=== PATIENT | female | born 1985 | race African-American/Black ===

== ENCOUNTER 2016-06-13 10:54 | Emergency (ER) | payer MEDICAID ==
[2016-06-13 11:00] VITALS: TEMP 98.1
[2016-06-13] MEDS ORDERED: ONDANSETRON 4 MG/2 ML VIAL IVP ONE ×2 (11:16→13:00)
[2016-06-13] MEDS ORDERED: NS 1,000 ML IV ONE (11:16)
--- NOTE | 2016-06-13 11:25 | EDPHY ---
H & P Stated Complaint: menstral cramps HPI/ROS: CHIEF COMPLAINT: Menstrual cramps. HISTORY OF PRESENT ILLNESS: The patient is a 30-year-old female who presents with menstrual cramps that began yesterday when her period began. She is usually able to treat these with Tylenol and took Tylenol this morning, but she developed vomiting soon after. She denies diarrhea, fever, recent sickness, or other complaints. She has been seen with similar symptoms in the past and has been treated with anti-inflammatory medications and opiate medication. She took control pills for 2 years, during which time she did not suffer from severe menstrual cramps. However, she discontinued these few months ago. REVIEW OF SYSTEMS: A ten point review of systems was performed and is negative with the exception of the items mentioned in the HPI. Source: Patient Exam Limitations: No limitations - Personal History LMP (Females 10-55): Now Current Tetanus/Diphtheria Vaccine: Yes Current Tetanus Diphtheria and Acellular Pertussis (TDAP): Yes Tetanus Vaccine Date: < 10 YEARS - Medical/Surgical History Hx Asthma: No Hx Chronic Respiratory Disease: No Hx Diabetes: No Hx Cardiac Disease: No Hx Renal Disease: No Hx Cirrhosis: No Hx Alcoholism: No Hx HIV/AIDS: No Hx Splenectomy or Spleen Trauma: No Other PMH: breast biopsy - Social History Smoking Status: Current every day smoker Additional Social History: Smoker, occasional alcohol use. - Physical Exam Exam: General Appearance: Alert, tearful. Vital signs reviewed. Heart rate 118. Eyes: Pupils equal and round, no conjunctival injection, no discharge. Anicteric. ENT, Mouth: Mucous membranes are moist, no oropharyngeal erythema or edema. Neck: No lymphadenopathy, supple. Respiratory: Lungs are clear to auscultation; no wheezes, rales, or rhonchi. Cardiovascular: Regular rate and rhythm; no murmur, rub, or gallop. Gastrointestinal: Abdomen is soft and moderately tender in both lower quadrants , no guarding, no masses or organomegaly, bowel sounds normal. Skin: Warm and dry, no rashes on exposed skin, normal color. Back: Nontender to palpation over the thoracolumbar spine. No CVAT. Extremities: No lower extremity edema, no calf tenderness or swelling. Neurological: Alert and oriented. Moving all four extremities easily and equally. Psychiatric: Tearful. position. Constitutional: Initial Vital Signs Temperature (C) 36.7 C 06/13/16 10:57 Heart Rate 118 H 06/13/16 10:57 Respiratory Rate 17 06/13/16 10:57 Blood Pressure 97/57 L 06/13/16 10:57 O2 Sat (%) 93 06/13/16 10:57 O2 Delivery Mode Room Air Allergies/Adverse Reactions: SEASONAL Allergy (Mild, Uncoded 08/16/13 11:20) RUNNY NOSE, ITCHY EYES Home Medications: Medication Instructions Recorded Bcp 01/10/13 Ondansetron HCl [Zofran] 01/10/13 Quvar 01/10/13 Hydrocodone/APAP 5/325 [[place] 1 - 2 tab PO Q6H PRN #14 tab 01/21/15 5/325] Ondansetron Odt [Zofran Odt 4 mg 4 mg PO Q4 PRN #6 tab 01/21/15 (RX)] Medical Decision Making ED Course/Re-evaluation: 30-year-old female presents with menstrual cramps since yesterday. She usually gets abdominal cramping with her period but this is worse and she also vomited this morning. She has no urinary symptoms, diarrhea, fever, or other complaints. An IV was established. 4mg IV Zofran and 15 mg IV Toradol administered for nausea and pain. 1L IV saline administered for hydration. Her pain persisted and she received Dilaudid 0.5 mg IV. 1325: Reassessed patient. She is feeling much better, feels well enough to return home. We discussed follow-up with of recruitment specialist and she will make arrangements for this through [facility] where she receives her primary care. I do not suspect ovarian torsion, ovarian cyst, ectopic , SBO, urinary tract infection, pyelonephritis, or appendicitis. This presentation is consistent with prior emergency department visits. She reports that today's pain is entirely consistent with her previous episodes of severe dysmenorrhea. - Data Points Medications Given: Discontinued Medications Hydromorphone HCl (Dilaudid) 0.5 mg IVP EDNOW ONE Stop: 06/13/16 12:06 Last Admin: 06/13/16 12:14 Dose: 0.5 mg Sodium Chloride (Ns) 1,000 mls @ 0 mls/hr IV EDNOW ONE PRN Reason: Wide Open Stop: 06/13/16 11:17 Last Admin: 06/13/16 11:33 Dose: 1,000 mls Ketorolac Tromethamine (Toradol) 15 mg IVP EDNOW ONE Stop: 06/13/16 11:39 Last Admin: 06/13/16 11:45 Dose: 15 mg Ondansetron HCl (Zofran) 4 mg IVP EDNOW ONE Stop: 06/13/16 11:17 Last Admin: 06/13/16 11:33 Dose: 4 mg Ondansetron HCl (Zofran) 4 mg IVP EDNOW ONE Stop: 06/13/16 13:01 Last Admin: 06/13/16 13:10 Dose: 4 mg Departure - Departure Disposition: Home, Routine, Self-Care Clinical Impression: Menstrual cramps Condition: Good Instructions: Dysmenorrhea (ED) Additional Instructions: Follow up with [facility] COORDIN[facility] for reevaluation. Consider taking control pills again. Return for any serious worsening of condition. Referrals: [facility],. [Clinic] - As per Instructions Report Scribed for: Aury Rubio Report Scribed by: Dong Conti Date of Report: 06/13/16 Time of Report: 11:35 Physician Review and Approval Statement: 06/13/16 11:24 Portions of this note were transcribed by the medical radiation tech. I, Dr. Aury Rubio, personally performed the history, physical exam, and medical decision- making; and confirmed the accuracy of the information in the transcribed note.
[2016-06-13] MEDS ORDERED: KETOROLAC 30 MG/1 ML SDV IVP ONE (11:38)
[2016-06-13] MEDS ORDERED: KETOROLAC 15 MG/1 ML SDV ONE (11:43)
[2016-06-13] MEDS ORDERED: HYDROmorphONE/DILAUDID 1 MG/ML SYR IVP ONE (12:05)
[2016-06-13] MEDS ORDERED: HYDROmorphONE/DILAUDID 1 MG/ML SYR ONE (12:05)
[2016-06-13] MEDS ORDERED: ONDANSETRON 4 MG/2 ML VIAL ONE (12:08)
[2016-06-13 13:39] VITALS: BP 118/72; PULSE 77; RESP 18; O2SAT 97
== END 2016-06-13 13:39 | disposition home or self-care (01) ==
DX: N94.6 Dysmenorrhea, unspecified (principal); F17.200 Nicotine dependence, unspecified, uncomplicated
CPT/HCPCS: 96374; J1170; J1885; J2405

== ENCOUNTER 2016-09-15 06:04 | Emergency (ER) | payer MEDICAID ==
[2016-09-15 06:10] VITALS: TEMP 97.7
[2016-09-15] MEDS ORDERED: NS 1,000 ML IV ONE (06:15)
[2016-09-15] MEDS ORDERED: LORazepam 2 MG/ML INJ IVP ONE (06:19)
[2016-09-15] MEDS ORDERED: fentaNYL 100 MCG/2 ML INJ IVP ONE (06:20)
--- NOTE | 2016-09-15 06:25 | EDPHY ---
H & P Stated Complaint: MENSTRAL CRAMPS1 ST DAY OF PERIOD Source: Patient - Personal History LMP (Females 10-55): Now Current Tetanus/Diphtheria Vaccine: Yes Current Tetanus Diphtheria and Acellular Pertussis (TDAP): Yes Tetanus Vaccine Date: < 10 YEARS - Medical/Surgical History Hx Asthma: No Hx Chronic Respiratory Disease: No Hx Diabetes: No Hx Cardiac Disease: No Hx Renal Disease: No Hx Cirrhosis: No Hx Alcoholism: No Hx HIV/AIDS: No Hx Splenectomy or Spleen Trauma: No Other PMH: breast biopsy - Social History Smoking Status: Current every day smoker HPI/ROS: HPI CHIEF COMPLAINT: Menstrual cramps HISTORY OF PRESENT ILLNESS: This patient 31-year-old female, presents emergency room by private vehicle with her mother for severe menstrual cramps. She started her period today. She has been taking control but missed a few doses of it. She states she has not had any significant vaginal bleeding just light spotting but has severe lower menstrual cramps. She states this is very similar to her previous menstrual cramps in the past. She has been seen in the emergency room multiple times for menstrual cramps requires IV pain medicine usually anti-inflammatories and IV narcotic to help control her pain. She typically takes Tylenol Motrin at home however when he gets this bad she requires IV pain medicine. She has been dealing with severe menstrual cramps for years. She has been seen here in emergency room on multiple occasions for this. She denies being , denies fever, denies urinary symptoms. Denies heavy vaginal bleeding. States that her menustral cramps started earlier today in been somewhat severe lower pelvic cramping. Past Medical History: Menstrual cramps, depression Past Surgical History: No recent surgery Social History: Daily smoker denies alcohol or drugs Family History: ROS REVIEW OF SYSTEMS: A comprehensive 10 point review of systems is otherwise negative aside from elements mentioned in the history of present illness. Exam Constitutional writhing in bed, tearful, screaming, triage nursing summary reviewed, vital signs reviewed, awake/alert. Eyes normal conjunctivae and sclera, EOMI, PERRLA. HENT normal inspection, atraumatic, moist mucus membranes, no epistaxis, neck supple/ no meningismus, no raccoon eyes. Respiratory clear to auscultation bilaterally, normal breath sounds, no respiratory distress, no wheezing. Cardiovascular rate normal, regular rhythm, no murmur, no edema, distal pulses normal. Gastrointestinal soft, tender palpation in the suprapubic and both adnexa, no masses or fullness, no peritoneal signs, no rebound, no guarding, normal bowel sounds, no distension, no pulsatile mass. Genitourinary no CVA tenderness. Musculoskeletal no midline vertebral tenderness, full range of motion, no calf swelling, no tenderness of extremities, no meningismus, good pulses, neurovascularly intact. Skin pink, warm, & dry, no rash, skin atraumatic. Neurologic awake, alert and oriented x 3, AAOx3, moves all 4 extremities equally, motor intact, sensory intact, CN II-XII intact, normal cerebellar, normal vision, normal speech. Psychiatric normal mood/affect. Heme/Lymph/Immune no lymphadenopathy. Differential Diagnosis: Includes but is not limited to in a particular order severe menstrual cramps, , ectopic . Medical Decision Making: Plan for this patient this patient tells me this is severe menstrual cramps very similar to her previous menstrual cramps. Patient tells me she has been seen here multiple times for this denies any vaginal discharge light vaginal spotting started today. Missed multiple doses of her oral contraceptive. Denies being . Plan for this patient will check test, basic blood work, she will have an IV established receive IV fentanyl for acute pain control IV Ativan for anxiety and calming. And re- evaluate. Re-evaluation: 0658AM: Patient is resting comfortably here in the emergency room, re- examination her abdomen is soft nontender. She is not vomiting. She feels much better after IV Ativan 1 mg 50 mcg IV fentanyl. She is agreeable being discharged home. She feels much better. I did explain should follow up with OBGYN. Return emergency room if there is any worsening symptoms includes worsening abdominal pain, fever, vomiting. I do not feel that she needs imaging as her abdomen is soft nontender. Her symptoms were consistent with previous menstrual cramps. (Cm Alvarez) Constitutional: Initial Vital Signs Temperature (C) 36.5 C 09/15/16 06:08 Heart Rate 66 09/15/16 06:08 Respiratory Rate 24 H 09/15/16 06:08 O2 Sat (%) 98 09/15/16 06:08 O2 Delivery Mode Room Air Allergies/Adverse Reactions: SEASONAL Allergy (Mild, Uncoded 09/15/16 21:55) RUNNY NOSE, ITCHY EYES Home Medications: Medication Instructions Recorded Bcp 01/10/13 Medical Decision Making Other Provider: I assumed care of this patient from Dr. Alvarez at 7:00 a.m.. She slept until about 8:30 a.m.. Upon awakening she complained of continued lower abdominal pain and cramping. She is being given 15 mg of Toradol IV, after which I anticipate that she will be able to return home. (Aury Rubio) - Data Points Laboratory Results: Laboratory Results 09/15/16 06:37 09/15/16 06:37 Medications Given: Discontinued Medications Fentanyl (Sublimaze) 50 mcg IVP EDNOW ONE Stop: 09/15/16 06:21 Last Admin: 09/15/16 06:25 Dose: 50 mcg Sodium Chloride (Ns) 1,000 mls @ 0 mls/hr IV EDNOW ONE; Wide Open PRN Reason: Protocol Stop: 09/15/16 06:16 Last Admin: 09/15/16 06:25 Dose: 1,000 mls Ketorolac Tromethamine (Toradol) 15 mg IVP EDNOW ONE Stop: 09/15/16 08:51 Last Admin: 09/15/16 08:54 Dose: 15 mg Lorazepam (Ativan Injection) 1 mg IVP EDNOW ONE Stop: 09/15/16 06:20 Last Admin: 09/15/16 06:25 Dose: 1 mg Departure - Departure Disposition: Home, Routine, Self-Care Clinical Impression: Menstrual cramps Condition: Good Instructions: Dysmenorrhea (ED) Additional Instructions: Adult Pain & Fever Control: We recommend Acetaminophen (Tylenol) and Ibuprofen (Motrin,Advil) for pain and fever control. When fever is high or pain severe, both drugs can be used at the same time, but at different intervals. Please note the time differences. Your dose is: Acetaminophen [1000]mg every 4 to 6 hours Ibuprofen [400]mg every [6 to 8] hours with food--no ibuprofen and till late afternoon today, you received a dose of the same class of medication at 9: 00 a.m. this morning. Note: do not take Acetaminophen with Hydrocodone (Vicodin, Lortab) or Oycodone (Percocet). These medications also contain Acetaminophen. No more than 3000mg of Acetaminophen should be taken in 24 hours (for an adult). 1.Please follow up with OBGYN. 2. Return emergency room if you have worsening symptoms questions or concerns. Referrals: [facility] [Other] - As per Instructions Marlen Turner MD [Medical Doctor] - As per Instructions
[2016-09-15 06:44] LABS: % IMMATURE GRANULYOCYTES 0.3 % (0.0-1.1); ABSOLUTE IMMATURE GRANULOCYTES 0.04 10^3/uL (0.00-0.10); ADD DIFF? NO; ADD MORPH? NO; ADD SCAN? NO; ATYPICAL LYMPHOCYTE FLAG 20 (0-99); FRAGMENT RBC FLAG 0 (0-99); HEMATOCRIT 41.9 % (38.0-47.0); HEMOGLOBIN 14.3 g/dL (12.6-16.3); LEFT SHIFT FLG 0 (0-99); LIPEMIA HEMOLYSIS FLAG 90 (0-99); MEAN CELL HEMOGLOBIN CONCENTR. 34.1 g/dL (32.4-36.7); MEAN CELL VOLUME 90.7 fL (81.5-99.8); MEAN PLATELET VOLUME 10.5 fL (8.7-11.7); PLATELET CLUMPS FLAG 0 (0-99); PLATELET COUNT 267 10^3/uL (150-400); RED BLOOD CELL COUNT 4.62 10^6/uL (4.18-5.33); RED CELL DISTRIBUTION WIDTH 14.3 % (11.5-15.2)
[2016-09-15 07:16] LABS: ALANINE AMINOTRANSFERASE 22 IU/L (9-52); ALBUMIN 4.2 g/dL (3.5-5.0); ALKALINE PHOSPHATASE 45 IU/L (38-126); ANION GAP 15 mEq/L (8-16); ASPARTATE AMINOTRANSFERASE 29 IU/L (14-46); BILIRUBIN,TOTAL 0.4 mg/dL (0.1-1.4); BILIRUBIN-CONJUGATED 0.3 mg/dL (0.0-0.5); BILIRUBIN-UNCONJUGATED 0.1 mg/dL (0.0-1.1); CALCIUM 9.2 mg/dL (8.5-10.4); CARBON DIOXIDE 20 mEq/l (22-31); CHLORIDE 109 mEq/L (97-110); CREATININE 0.6 mg/dL (0.6-1.0); GLOMERULAR FILTRATION RATE > 60; GLUCOSE 102 mg/dL (70-100); POTASSIUM 3.7 mEq/L (3.5-5.2); SODIUM 144 mEq/L (134-144); TOTAL PROTEIN 7.1 g/dL (6.3-8.2)
[2016-09-15 08:46] VITALS: RESP 12
[2016-09-15] MEDS ORDERED: KETOROLAC 15 MG/1 ML SDV ONE (08:50)
[2016-09-15] MEDS ORDERED: KETOROLAC 30 MG/1 ML SDV IVP ONE (08:50)
[2016-09-15 09:32] VITALS: BP 106/62; PULSE 71; O2SAT 100
== END 2016-09-15 09:38 | disposition home or self-care (01) ==
DX: N94.6 Dysmenorrhea, unspecified (principal); F17.200 Nicotine dependence, unspecified, uncomplicated; E86.9 Volume depletion, unspecified
CPT/HCPCS: 96374; J1885; J2060; J3010

== ENCOUNTER 2016-09-15 21:47 | Emergency (ER) | payer MEDICAID ==
[2016-09-15 21:55] VITALS: RESP 16; O2SAT 98
--- NOTE | 2016-09-15 23:48 | EDPHY ---
H & P Stated Complaint: seen for unusu cramping today, since had unusu discharge Source: Patient Exam Limitations: No limitations - Personal History Tetanus Vaccine Date: < 10 YEARS - Medical/Surgical History Hx Asthma: No Hx Chronic Respiratory Disease: No Hx Diabetes: No Hx Cardiac Disease: No Hx Renal Disease: No Hx Cirrhosis: No Hx Alcoholism: No Hx HIV/AIDS: No Hx Splenectomy or Spleen Trauma: No Other PMH: breast biopsy - Social History Smoking Status: Current every day smoker Time Seen by Provider: 09/15/16 22:15 HPI/ROS: CHIEF COMPLAINT: vaginal foreign body HISTORY OF PRESENT ILLNESS: 31-year-old female presents emergency department concerned about a piece of tissue that she passed prior to arrival. Patient was seen in the emergency department early this morning for lower abdominal cramping and vaginal bleeding. She was treated for menstrual cramps. Patient has a history of dysmenorrhea and has been seen multiple times and treated for this. Patient states her pain was significantly improved upon discharge and she went home and took a nap, she woke up this evening, got up to go to the bathroom and noticed a large piece of tissue or foreign body in her underwear. Patient denies increase in vaginal bleeding, no cramping, no fevers or chills. She is sexually active, test was negative this morning. Patient denies back pain. She denies history of STD. She denies vaginal discharge. REVIEW OF SYSTEMS: A comprehensive 10 point review of systems is otherwise negative aside from elements mentioned in the history of present illness. (Kellie Mcconnell) - Physical Exam Exam: Physical Exam Gen: Alert and Oriented, NAD HEENT: PERRL, moist mucous membranes NECK: no meningismus CV: regular rate and regular rhythm PULM: CTAB, no wheezes ABDOMEN: soft, non tender to palpation, BS present Pelvic exam: The vulva was normal no lesions. The vagina did not have significant discharge. The cervix was closed minimal bleeding and no purulent drainage. The uterus was normal size and non tender. The adnexa had no masses and no tenderness. The exam was performed with a sales representative publications. BACK: No CVA tenderness NEURO: Neurologically grossly intact EXTREMITIES: normal appearing SKIN: no rash or break in skin on exposed skin PSYCH: answers questions appropriately. (Kellie Mcconnell) Constitutional: Initial Vital Signs Temperature (C) 37.3 C 09/15/16 21:52 Heart Rate 64 09/15/16 21:52 Respiratory Rate 16 09/15/16 21:52 Blood Pressure 117/49 L 09/15/16 21:52 O2 Sat (%) 98 09/15/16 21:52 O2 Delivery Mode Room Air Allergies/Adverse Reactions: SEASONAL Allergy (Mild, Uncoded 09/15/16 21:55) RUNNY NOSE, ITCHY EYES Home Medications: Medication Instructions Recorded Bcp 01/10/13 Medical Decision Making ED Course/Re-evaluation: Pelvic exam performed, GC and chlamydia obtained and sent to the lab. Patient has no evidence of PID, vaginal discharge, minimal bleeding, os is closed. Tissue patient brought in sent to the lab for tissue culture. Ultrasound has been ordered and is pending. Report passed on to Dr. Alvarez at the end of my shift pending ultrasound results. (Kellie Mcconnell) 0219AM: Ultrasound results notified to me by Dr. Rendon that this patient has a fibroid. Otherwise normal ovaries. Trace free fluid. Otherwise unremarkable ultrasound. I did go over this with the patient. Recommend she follows up with her OBGYN. (Cm Alvarez) - Data Points Laboratory Results: 09/15/16 23:20 C.trachomatis RNA (TMA) Pending N.gonorrhoeae RNA (TMA) Pending Departure - Departure Clinical Impression: Discharge from the vagina Condition: Good Instructions: Pelvic Pain in Women (ED) Additional Instructions: Follow-up with the OBGYN at 1st available appointment, call tomorrow morning to schedule this. Return to the emergency department any new symptoms, worsening symptoms or complaints. Referrals: Marlen Turner MD [Medical Doctor] - As per Instructions
[2016-09-16 02:26] VITALS: BP 107/52; PULSE 59; TEMP 98.4
[2016-09-16 13:29] LABS: CHLAMYDIA AMPLIFICATION GENPRB NEGATIVE (NEGATIVE)
== END 2016-09-16 02:26 | disposition home or self-care (01) ==
DX: N89.8 Other specified noninflammatory disorders of vagina (principal); F17.200 Nicotine dependence, unspecified, uncomplicated
CPT/HCPCS: 96374; J1885; J2060; J3010

== ENCOUNTER 2018-07-19 09:07 | Emergency (ER) | payer MEDICAID, OTHER ==
[2018-07-19] MEDS ORDERED: NS 1,000 ML IV ONE (09:20)
--- NOTE | 2018-07-19 09:20 | EDPHY ---
General Time Seen by Provider: 07/19/18 09:20 Narrative: CLINICAL IMPRESSION: Ruptured ovarian cyst ASSESSMENT/PLAN: Patient is a 33-year-old female with history of dysmenorrhea who presents to the emergency department with lower abdominal cramping, nausea and vomiting. Patient is afebrile, she is very uncomfortable appearing however not toxic- appearing. Her abdomen was soft, tender in the generalized lower abdomen however most tender in the right lower quadrant. Laboratory studies obtained, mild leukocytosis which I suspect is reactive. Her vital signs were reviewed no findings to suggest sepsis. Ultrasound revealed a collapsing right ovarian cyst with a small amount of fluid in her pelvis. Patient was given IV fluids, antiemetic and pain medication with a marked improvement of her symptoms. History of physical examination is consistent with ruptured right ovarian cyst. She is well established at [facility] and understands the importance of follow- up. Conservative return precautions discussed. DIFFERENTIAL DX: Abdominal pain in a female including but not limited to ovarian cyst, pelvic inflammatory disease, ovarian torsion, urinary tract infection, and appendicitis. ED COURSE: 1052: On repeat exam the patient is still in quite a bit of discomfort, will order Toradol. Laboratory studies were reassuring. Still awaiting ultrasound results. Case management visited with patient, she is well established at [facility]. They will reach out to her to try and facilitate OBGYN follow-up. 1148: Dr. Prakash with Radiology called, ultrasound with findings suggestive of a collapsing right ovarian cyst. 1205: On repeat exam the patient is sleeping, she is easily arousable. She is much more comfortable and states she is feeling so much better. Patient's abdomen is soft, very mild tenderness to palpation in the generalized lower abdomen, most tender in the right. No evidence of a surgical abdomen. CHIEF COMPLAINT: Abdominal cramping, nausea and vomiting HPI: Patient is a 33-year-old female with a history of dysmenorrhea who presents to the emergency department with lower abdominal cramping, nausea and vomiting. Patient reports a longstanding history of severe menstrual cramping during her menses, start her. Two days ago and has been able to manage her discomfort with ibuprofen. Last evening she started to have a sudden onset of nausea, vomiting and increased pain. Her pain is typical for when she has exacerbations however she is unable to get her nausea and vomiting under control. She is now experiencing pain that is radiating into her right lower quadrant and down her right leg which is not typical for her. She is having uncontrolled shaking secondary to profuse nausea and vomiting. Patient denies any fevers, chest pain or shortness of breath. She denies any urinary symptoms to include dysuria, hematuria or frequency. She denies any change in bowel habit, normal bowel movement yesterday. Denies any vaginal discharge. PMH: Dysmenorrhea Pertinent Past Surgical History: Denies Family History: Not contributory Social History: Smoker, denies illicit drug use REVIEW OF SYSTEMS: All other systems negative Constitutional: Decreased appetite. No fever, no chills. Eyes: No discharge, vision change ENT: No sore throat, congestion, ear pain. Cardiovascular: No chest pain, no palpitations. Respiratory: No cough, no shortness of breath. Gastrointestinal: Abdominal pain, nausea and vomiting. Genitourinary: No hematuria, dysuria, flank pain. Musculoskeletal: No back pain, joint swelling, joint pain, myalgias. Skin: No rashes, color change. Neurological: No headache, dizziness, weakness. PHYSICAL EXAM: General Appearance: Very uncomfortable appearing, shaking. HENT: Normocephalic, atraumatic. Bilateral external ears are normal. Bilateral tympanic membranes are normal with pearly burks reflex. Nares are clear, mucosa is pink. Oropharynx is clear, oropharynx is dry, uvula is midline. The dentition is normal. Eyes: PERRLA, EOMI. Conjunctiva pink, no pallor or injection Neck: Supple, nontender, no lymphadenopathy, no midline pain, FROM, no meningismus. Respiratory: There are no retractions, lungs are clear to auscultation. Cardiac: Regular rate and rhythm, no murmurs or gallops. Gastrointestinal: Patient is thin, her abdomen is soft. She has tender in her generalized lower abdomen however most tender in her right lower quadrant. There is no rigidity, guarding or focal peritoneal findings. Bowel sounds are present. No masses or hernias appreciated. Neurological: Alert and oriented x 3, CN 2-12 grossly intact, normal sensation and strength Skin: Warm, dry, no rashes, no nodules on palpation. Musculoskeletal: Extremities are symmetrical, full range of motion, no tenderness, deformity, swelling, or erythema. Psychiatric: Mood and affect are normal, there is no agitation. MEDICAL DECISION MAKING: Patient was seen independently. Secondary supervising physician at time of evaluation was Dr. Noguera, he did not evaluate this patient. Diagnosis: Ruptured ovarian cyst. Summary: CBC revealed mild leukocytosis of 12,000, I suspect this is reactive. Her vital signs were reviewed and there was no evidence of sepsis or serious bacterial illness. BMP revealed no significant metabolic abnormality or evidence of acute kidney injury. Lipase and hepatic panel grossly normal. Ultrasound revealed a collapsing right ovarian cyst with a small amount of free fluid in the pelvis-no findings to suggest torsion or TOA. History and physical examination is most consistent with right ovarian cystic rupture. On repeat examination the patient was much more comfortable appearing, she had minimal abdominal pain and no evidence of a surgical abdomen. With ultrasound results I did not feel that additional imaging was warranted at this time. The patient is well established at [facility], case management visited with the patient as well and she will call tomorrow to schedule follow- up. In light of the collapsing right ovarian cyst I have a very low suspicion for other etiologies to include acute appendicitis, acute cholecystitis, kidney stone, pancreatitis, perforated viscus or other acute intra-abdominal process. Conservative return precautions discussed. Clinical lab tests: ordered / reviewed. Independent visualization of images, tracing, or specimens: Yes. Decision to obtain medical records or history from someone other than the patient: Yes, brother Review / Summarize previous medical records: Yes Discussed patient with another provider: Yes, Dr. Noguera Patient Progress: Stable, discharged. - Diagnostics Imaging Results: Imaging Impressions Pelvic/Renal Ultrasound 07/19/18 10:51 Impression: 1. 1.4 probable collapsing cyst right ovary with mild free fluid in the pelvis. 2. Small leiomyoma fundus of the uterus measuring 1.8 cm. Results called and discussed with JASON Cuevas at 07/19/2018 11:49. - History Smoking Status: Current every day smoker - Objective Vital Signs: Initial Vital Signs Heart Rate 68 07/19/18 09:11 Respiratory Rate 25 H 07/19/18 09:11 Blood Pressure 156/107 H 07/19/18 09:11 O2 Sat (%) 92 07/19/18 09:11 O2 Delivery Mode Room Air Allergies/Adverse Reactions: SEASONAL Allergy (Mild, Uncoded 07/19/18 09:13) RUNNY NOSE, ITCHY EYES Home Medications: Medication Instructions Recorded Bcp 01/10/13 Ondansetron Odt [Zofran Odt] 4 mg PO Q8 PRN #10 tab 07/19/18 Laboratory Results: Laboratory Results 07/19/18 09:40 07/19/18 09:40 07/19/18 07/19/18 07/19/18 09:40 09:40 09:40 WBC 12.22 10^3/uL H 10^3/uL (3.80-9.50) RBC 4.71 10^6/uL 10^6/uL (4.18-5.33) Hgb 14.6 g/dL g/dL (12.6-16.3) Hct 43.0 % % (38.0-47.0) MCV 91.3 fL fL (81.5-99.8) MCH 31.0 pg pg (27.9-34.1) MCHC 34.0 g/dL g/dL (32.4-36.7) RDW 13.2 % % (11.5-15.2) Plt Count 251 10^3/uL 10^3/uL (150-400) MPV 10.4 fL fL (8.7-11.7) Neut % (Auto) 72.1 % % (39.3-74.2) Lymph % (Auto) 20.5 % % (15.0-45.0) [place] % (Auto) 5.6 % % (4.5-13.0) Eos % (Auto) 1.0 % % (0.6-7.6) Baso % (Auto) 0.5 % % (0.3-1.7) Nucleat RBC Rel Count 0.0 % % (0.0-0.2) Absolute Neuts (auto) 8.81 10^3/uL H 10^3/uL (1.70-6.50) Absolute Lymphs (auto) 2.50 10^3/uL 10^3/uL (1.00-3.00) Absolute Monos (auto) 0.69 10^3/uL 10^3/uL (0.30-0.80) Absolute Eos (auto) 0.12 10^3/uL 10^3/uL (0.03-0.40) Absolute Basos (auto) 0.06 10^3/uL 10^3/uL (0.02-0.10) Absolute Nucleated RBC 0.00 10^3/uL 10^3/uL (0-0.01) Immature Gran % 0.3 % % (0.0-1.1) Immature Gran # 0.04 10^3/uL 10^3/uL (0.00-0.10) Sodium 144 mEq/L mEq/L (135-145) Potassium 3.9 mEq/L mEq/L (3.5-5.2) Chloride 113 mEq/L H mEq/L (97-110) Carbon Dioxide 20 mEq/l L mEq/l (22-31) Anion Gap 11 mEq/L mEq/L (6-14) BUN 9 mg/dL mg/dL (7-23) Creatinine 0.6 mg/dL mg/dL (0.6-1.0) Estimated GFR > 60 Glucose 107 mg/dL H mg/dL (70-100) Calcium 9.9 mg/dL mg/dL (8.5-10.4) Total Bilirubin 0.4 mg/dL mg/dL (0.1-1.4) Conjugated Bilirubin 0.1 mg/dL mg/dL (0.0-0.5) Unconjugated Bilirubin 0.3 mg/dL mg/dL (0.0-1.1) AST 30 IU/L IU/L (14-46) ALT 32 IU/L IU/L (9-52) Alkaline Phosphatase 65 IU/L IU/L (38-126) Creatine Kinase 68 IU/L IU/L (0-156) Total Protein 7.2 g/dL g/dL (6.3-8.2) Albumin 4.6 g/dL g/dL (3.5-5.0) Lipase 49 IU/L IU/L (23-300) Beta HCG, Qual NEGATIVE Medications Given: Discontinued Medications Hydromorphone HCl (Dilaudid) 0.5 mg IVP EDNOW ONE Stop: 07/19/18 09:22 Last Admin: 07/19/18 09:43 Dose: 0.5 mg Sodium Chloride (Ns) 1,000 mls @ 0 mls/hr IV EDNOW ONE; Wide Open PRN Reason: Protocol Stop: 07/19/18 09:21 Last Admin: 07/19/18 09:47 Dose: 1,000 mls Ketorolac Tromethamine (Toradol) 30 mg IVP EDNOW ONE Stop: 07/19/18 10:52 Last Admin: 07/19/18 11:13 Dose: 30 mg Ondansetron HCl (Zofran) 4 mg IVP Q4 PRN PRN Reason: Nausea/Vomiting, Can't Take PO Stop: 01/15/19 09:20 Last Admin: 07/19/18 11:13 Dose: 4 mg Departure - Departure Disposition: Home, Routine, Self-Care Clinical Impression: Ruptured ovarian cyst Abdominal pain Qualifiers: Abdominal location: lower abdomen, unspecified Qualified Code(s): R10.30 - Lower abdominal pain, unspecified Nausea and vomiting Qualifiers: Vomiting type: unspecified Vomiting Intractability: non-intractable Qualified Code(s): R11.2 - Nausea with vomiting, unspecified Condition: Good Instructions: Abdominal Pain (ED) Additional Instructions: DISCHARGE INSTRUCTIONS FROM YOUR PROVIDER Thank you for visiting our emergency department today. It is important that you [facility] with [facility], please call tomorrow to schedule follow-up appointment. Your ultrasound showed findings suggestive of a ruptured ovarian cyst on the right side. Rest, push non-diuretic, non-caffeinated fluids, clear liquid diet, then a BRAT diet (bananas, rice, applesauce, toast), then slowly advance diet to normal. Attempt small frequent meals. For pain control: You may take Tylenol, I recommend 500-1000 mg every 6-8 hours as needed. Take with food and a full glass of water. Stop taking if this is upsetting you stomach. Do not exceed 4000 mg in a 24 hr period. You may also take ibuprofen, recommend 400 mg every 6 hr. Take with food and a full glass of water. Stop taking if this upsets your stomach. Do not exceed 2400 mg in a 24 hr period. Zofran as prescribed as needed for any recurrent nausea and/or vomiting. Schedule a follow-up appointment with your primary care physician in the next 1- 2 days for re-evaluation. Bring a copy of your test results with you to that appointment. Return for increased or unmanageable pain, new site or character of pain, flank pain, groin pain, pelvic pain, development of fever, chills, recurrent vomiting , vomiting blood or coffee grounds, diarrhea, constipation, bloody stools, black tarry stools, burning or pain with urination, bloody urine, inability to urinate, decreased urine output or other signs of dehydration, dizziness, weakness, fainting, difficulty breathing or swallowing, chest pain, or for any other new, worsening or worrisome symptoms. People present with illnesses and injuries in different ways, and it is always possible that we have missed something. Again, thank you for choosing our emergency department. We hope that you feel better. Referrals: [facility],. [Primary Care Provider] - 1-2 days without fail Prescriptions: Ondansetron Odt [Zofran Odt] 4 mg PO Q8 PRN #10 tab PRN Reason: Nausea/Vomiting, Can'T Take Po
[2018-07-19] MEDS ORDERED: HYDROmorphONE/DILAUDID 2 MG/ML INJ IVP ONE (09:21)
[2018-07-19] MEDS: ONDANSETRON 4 MG/2 ML VIAL IVP PRN ×2 (09:43→11:13)
[2018-07-19 09:53] LABS: PLATELET COUNT 251 10^3/uL (150-400)
[2018-07-19 10:15] LABS: CREATINE KINASE 68 IU/L (0-156)
[2018-07-19] MEDS ORDERED: KETOROLAC 30 MG/1 ML SDV IVP ONE (10:51)
[2018-07-19 12:24] VITALS: BP 96/60
--- NOTE | 2018-07-19 12:58 | ASMTCMCOM ---
CM Note CM Note Notes: Case Management met with patient regarding follow up care. Chart reviewed. Patient states that she has been to [facility] in the past but has not been there for "quite a while". She states that she does not have a PCP at the clinic but she does have an appointment scheduled this , July 22 (at the clinic) to re-establish her Medicaid which has . This CM spoke with patient about the Medicaid process and explained that her coverage (if reinstated) would likely cover todays ER visit. I explained the importance of getting to her appointment on and to follow up with Sarai (Sharon) re the status of her application. I have faxed a copy of patient's ER report to the [facility] and patient understands the impotance of scheduling follow up to re-establish care at the clinic. CM available for further needs, prn Date Signed: 07/19/2018 12:57 PM Electronically Signed By:Vale Argueta RN
== END 2018-07-19 12:32 | disposition home or self-care (01) ==
DX: R11.2 Nausea with vomiting, unspecified (principal)
CPT/HCPCS: 96374; J1170; J1885; J2405